=== PATIENT | female | born 1965 | race Caucasian/White ===

== ENCOUNTER 2017-04-03 17:28 | Emergency (ER) | payer MEDICAID ==
[~2017-04-03] VITALS: Ht 157.5 cm; Wt 91.8 kg
[2017-04-03 17:40] VITALS: BP 140/118; Ht 157.5 cm; Wt 91.8 kg
== END 2017-04-03 18:43 | disposition home or self-care (01) ==
LOC: ED 17:28
DX: F15.10 Other stimulant abuse, uncomplicated (principal); F42.4 Excoriation (skin-picking) disorder; M79.7 Fibromyalgia; E11.9 Type 2 diabetes mellitus without complications